=== PATIENT | female | born 2000 | race Caucasian/White ===

== ENCOUNTER 2023-07-19 06:22 | Inpatient (IN) | payer SELFPAY, OTHER ==
[2023-07-19] VITALS (25 sets, daily range): BP systolic 90–125; BP diastolic 46–98; PULSE 80–127; RESP 16–21; TEMP 36.4–37; O2SAT 97–99
[2023-07-19] MEDS: Lactated Ringers 1,000 ML 999 ML IV (06:30)
[2023-07-19 06:51] LABS: Absolute Lymphocyte Count 0.76 X10^3/uL (0.83-4.51); Absolute Neutrophil Count 14.4 X10^3/uL (2.0-7.7); Basophil# 0.02 X10^3/uL; Basophil% 0.1 % (0-1); Hematocrit 34.2 % (37-47); Hemoglobin 11.4 g/dL (12.0-15.0); Lymphocyte # 0.76 X10^3/ul (0.83-4.51); Lymphocyte % 4.8 % (19-41); Mean Corp Hgb Conc 33.3 g/dL (32-36); Mean Corpuscular Hgb 28.4 pg (27.0-32.0); Mean Corpuscular Volume 85.1 fL (81-99); Mean Platelet Vol. 12.4 fl (6.2-12.0); Monocyte# 0.72 X10^3/uL; Monocyte% 4.5 % (0-10); NRBC Flagged by Analyzer 0 % (0-5); Neutrophil # 14.35 X10^3/uL (2.7-7.7); Neutrophil % 89.9 % (47-70); Platelet Count 174 K/mm3 (150-450); RBC Distribution Width CV 12.3 % (11.6-14.6); RBC Distribution Width SD 38.1 fl (35.1-43.9); Red Blood Count 4.02 M/mm3 (4.2-5.4)
--- NOTE | 2023-07-19 07:17 | PCM.HP.OB ---
HPI - General General Date of Admission: 07/19/23 Date of Service: 07/19/23 Chief Complaint: Contractions and bleeding HPI Narrative FRANK VILLALOBOS, is a 22 F who presents in active labor. She is Completely dilated and complete breech. care has been completed with [facility]. GBS unknown. Gross ROM but time unknown. Maternal Data Information Final MARY: 08/[birth year]/23 Gestational age: 35+1 Doctor Who Attended Delivery: Latoya Wilson PFS Allergy/AdvReac Type Severity Reaction Status Date / Time No Known Allergies Allergy Verified 07/19/23 07:00 NST FHR Rate Baby A Baseline: 140 Variability:: Moderate Accelerations:: 15 x 15 Decelerations:: None NST Reactive:: Yes FHR Category:: Category I Uterine Activity:: q 2-4 ROS Constitutional Constitutional: Denies fatigue, fever(s) or malaise Eyes Eyes: Denies change in vision ENT HEENT: Denies dizziness or headache(s) Cardiovascular Cardiovascular: Denies chest pain, dyspnea or lightheadedness Respiratory/Chest Respiratory/Chest: Denies cough or dyspnea Gastrointestinal Gastrointestinal: Denies change in bowel habits Genitourinary Genitourinary: Denies burning urination or genital lesions Integumentary Integumentary: Denies rash Neurologic Neurologic: Denies confusion, dizziness, headache(s), numbness or weakness Vital Signs Vital Signs Vital Signs: 07/19/23 06:02 07/19/23 06:02 07/19/23 06:07 Pulse Rate 127 H 106 H Blood Pressure BP Systolic BP Diastolic Pulse Ox 98 07/19/23 06:07 07/19/23 06:13 07/19/23 06:13 Pulse Rate 100 Blood Pressure 124/80 H BP Systolic 124 BP Diastolic 80 Pulse Ox 98 Physical Exam Const alert General Appearance: cooperative HEENT normocephalic Resp normal respiratory effort GI soft to palpation GI Narrative: gravid, nontender, appropriate for gestational age Manual OB Exam: presentation breech, dilated 10, effaced 100 and station 0 Extremity no calf tenderness General Extremity: edema Skin no wounds Rashes: No rashes noted Psych activity/motor behavior normal Labs Labs Labs: Hct 34.2 % (37-47) L Hgb 11.4 g/dL (12.0-15.0) L Syphilis Total Ab Pending A+, routine labs negative Assessment & Plan (1) Breech presentation: PLAN: STAT primary c/s (2) Active labor:
--- NOTE | 2023-07-19 07:28 | OP.PCM_ITS ---
Assessment & Plan (1) Breech presentation: (2) Active labor: Maternal Data Information Final MARY: 08/22/23 Gestational age: 35+1 Doctor Who Attended Delivery: Latoya Wilson Details Operative Information Date of Procedure: 07/19/23 Pre-Operative Diagnosis: Active labor, breech presentation Post-Operative Diagnosis: same Indications for : Breech Indications Narrative: Active labor, complete dilation on arrival Classification: Stat Procedure Type: [employer] account executive #1: Brenden Acosta Type of Anesthesia: Spinal Anesthesiologist: Melvin Velez Antibiotic Given: Ancef 2 grams IV x1 and Zithromax 500 mg/5 mL X1 Drain: [place] to straight drain Estimated Blood Loss: 300 cc Procedure Start Time: 06:44 Procedure Stop Time: 07:25 Time of Delivery: 06:48 Findings Description of Procedure: Patient presented to L&D with contractions and bleeding. She was found to be completely dilated and breech. She was consented for primary . She was quickly moved to the OR where spinal anesthesia was placed. She was then placed in a dorsal supine position with a leftward tilt. She prepped and draped in the normal sterile fashion. A Pfannenstiel incision was made with the scalpel and carried down to the underlying fascia. The fascia was incised and extended laterally. The muscled were divided in the midline and the peritoneum entered blunted. The bladder blade was placed. A low transverse incision was made with the scalpel. The incision was extended laterally. The butt was elevated and delivered through the incision. The arms were swept through the incision. The uterus had to be T-ed to delivered the head. CAN x1. The cord was clamped and cut and the infant handed to the nurses. The placenta was delivered with expression. The uterus was cleared of clot and debris. The T part was repaired with 1-0 Vicryl in 2 layers. The low transverse incision was repaired with 1-0 Vicryl in 2 layers. The uterus was returned to the abdomen. The gutters were cleared. There peritoneum was closed with Monocryl. The The fascia was closed with 1-0 Vicryl. The skin was closed with 4-0. All sponge lap and need counts were correct. Presentation: Positive for Complete Breech Amniotic Membrane Rupture Type: Spontaneous Time of Membrane Ruptured: unknown Amniotic Fluid Description: Clear Placental Delivery Description: Expressed Placenta Disposition: [facility] Cord Vessel Description: 3 Vessels Cord Entanglement: Around neck x 1, loose Nuchal Cord Compression: Without compression Cord Gases: ABG A Gender: Male (1 minute): 9 (5 minute): 9 Delayed Cord Clamping: No Complications Risks of Surgery Discussed w/Patient: Need for Future C-Sections (t of incision)
[2023-07-19] MEDS: Oxytocin 15 Units/NS 250ml 15 UNITS/250 ML IV.SOLN 83 UNITS IV (07:45)
[2023-07-19] MEDS: Ondansetron 4 MG/2 ML Vial IV (08:24)
[2023-07-19] MEDS: Ketorolac 30 MG/ML Syringe IV ×3 (08:42→20:18)
[2023-07-19] MEDS: proCHLORPERazine 10 MG/2 ML Vial IV (08:59)
[2023-07-19] MEDS: Lactated Ringers 1,000 ML 100 ML IV (09:00)
[2023-07-19] MEDS: Azithromycin 500 MG in Dextrose 5%-Water (250mL Bag) 250 ML 250 MG IV (09:49)
[2023-07-19] MEDS: Acetaminophen 500 MG Tablet 1000 MG PO ×2 (14:18→20:18)
[2023-07-19 17:15] LABS: Syphilis Antibodies Non-reactive
[2023-07-19] MEDS: 0.9% Saline Lock 10 ML Syringe IV (20:18)
[2023-07-19 21:11] LABS: HIV - WCH Non-Reactive (Nonreactive); Hepatitis C Antibody Non-Reactive (Nonreactive)
[2023-07-20] MEDS: 0.9% Saline Lock 10 ML Syringe IV (02:15)
[2023-07-20] MEDS: Ketorolac 30 MG/ML Syringe IV (02:16)
[2023-07-20] MEDS: Acetaminophen 500 MG Tablet 1000 MG PO ×4 (02:16→19:36)
[2023-07-20 04:52] VITALS: BP 101/63; PULSE 90; RESP 16; TEMP 36.8
[2023-07-20 05:53] LABS: Hematocrit 25.4 % (37-47); Hemoglobin 8.3 g/dL (12.0-15.0); Mean Corp Hgb Conc 32.7 g/dL (32-36); Mean Corpuscular Hgb 27.9 pg (27.0-32.0); Mean Corpuscular Volume 85.5 fL (81-99); Mean Platelet Vol. 11.9 fl (6.2-12.0); Platelet Count 162 K/mm3 (150-450); RBC Distribution Width CV 12.7 % (11.6-14.6); RBC Distribution Width SD 39.5 fl (35.1-43.9); Red Blood Count 2.97 M/mm3 (4.2-5.4); White Blood Count 12.6 K/mm3 (4.4-11.0)
[2023-07-20] MEDS: Ibuprofen 600 MG Tablet PO ×3 (07:49→19:36)
[2023-07-20 08:32] VITALS: BP 109/77; RESP 16; TEMP 36.7
--- NOTE | 2023-07-20 08:56 | PN.OBGYN_ITS ---
Subjective Subjective Denies complaints Objective Data Objective Data Vital Signs: Vital Signs Temp Pulse Resp BP Pulse Ox O2 Del Method 98.0 F 90 16 109/77 97 Room Air 07/20/23 08:32 07/20/23 04:52 07/20/23 08:32 07/20/23 08:32 07/19/23 20:30 07/20/23 08:32 Oxygen Delivery Method Room Air Weight: 5 lb 3 oz Body Mass Index (BMI) 0.9 Intake & Output: Intake and Output for Last 24 Hours 07/18/23 07/19/23 07/20/23 23:59 23:59 23:59 Intake Total 2605 / 2605 Output Total 500 / 500 Balance 2105 / 2105 Lab / Micro Data 07/20/23 05:40 Labs: Laboratory Results - last 24 hr 07/19/23 06:20: Syphilis Total Ab Cancelled 07/19/23 08:15: Syphilis Total Ab Non-reactive, Hepatitis C Antibody Non- Reactive, HIV 1&2 Antibody Non-Reactive, Blood Type A POSITIVE, Antibody Screen NEGATIVE 07/20/23 05:40: WBC 12.6 H, RBC 2.97 L, Hgb 8.3 L, Hct 25.4 L, MCV 85.5, MCH 27.9, MCHC 32.7, RDW Std Deviation 39.5, RDW Coeff of Pearl 12.7, Plt Count 162, MPV 11.9 Physical Exam Const alert, oriented x3 and no apparent distress HEENT normocephalic GI soft to palpation, non-tender and non-distended GI Narrative: fundus firm, mid & below umbilicus Incision - bandage c/d/i Extremity normal to inspection and no calf tenderness Assessment & Plan (1) Delivery by section: COMMENT: POD#1 (2) Acute blood loss anemia: PLAN: Plan Heme - start iron for anemia GI/ - no issues ID - AF, no signs infection Routine care
[2023-07-20] MEDS: Senna/Docusate Sodium 1 Tablet PO (10:00)
[2023-07-20 14:48] VITALS: BP 85/56; PULSE 107; RESP 16; TEMP 37.1; O2SAT 98
[2023-07-20 19:59] VITALS: BP 108/65; PULSE 116; RESP 16; TEMP 36.8; O2SAT 99
[2023-07-21 02:15] VITALS: BP 116/55; PULSE 118; RESP 16; TEMP 36.9; O2SAT 100
[2023-07-21] MEDS: Ibuprofen 600 MG Tablet PO ×3 (02:17→13:53)
[2023-07-21] MEDS: Acetaminophen 500 MG Tablet 1000 MG PO ×3 (02:18→13:53)
[2023-07-21 08:07] VITALS: BP 107/63; PULSE 117; RESP 16; TEMP 36.9; O2SAT 99
--- NOTE | 2023-07-21 08:33 | PCM.PN.OB ---
Subjective Subjective Doing well. Pain controlled. Ambulating and voiding without difficulty. Breast feeding and supplementing. Maternal tachycardia but no chest pain or SOB. Objective Data Objective Data Vital Signs: Vital Signs Temp Pulse Resp BP Pulse Ox O2 Del Method 98.4 F 117 H 16 107/63 99 Room Air 07/21/23 08:07 07/21/23 08:07 07/21/23 08:07 07/21/23 08:07 07/21/23 08:07 07/21/23 08:07 Oxygen Delivery Method Room Air Weight: 2.353 kg Body Mass Index (BMI) 0.9 Intake & Output: Intake and Output for Last 24 Hours 07/19/23 07/20/23 07/21/23 23:59 23:59 23:59 Intake Total 2605 / 2605 Output Total 500 / 500 Balance 2105 / 2105 Lab / Micro Data 07/20/23 05:40 Physical Exam Const alert General Appearance: cooperative GI GI Narrative: soft, moderate distention, fundus firm, appropriately tender. Abdominal bandage clean dry and intact Assessment & Plan (1) Delivery by section: COMMENT: POD#1 (2) Breech presentation: (3) Acute blood loss anemia: PLAN: Plan Expect discharge today
--- NOTE | 2023-07-21 08:35 | PCM.DC.SUM ---
Providers Date of Admission: 07/19/23 Primary Care Physician: Nadiya Primary Care Phys Reason For Visit: PRIMARY C SECTION Diagnosis Discharge Diagnosis (1) Delivery by section: Status: Acute (2) Breech presentation: Status: Acute Code(s): O32.1XX0 - Maternal care for breech presentation, not applicable or unspecified (3) Acute blood loss anemia: Status: Acute Code(s): D62 - Acute posthemorrhagic anemia Plan Expect discharge today Medications at Discharge Home Medications vit no.95-ferrous fumarate 28 mg-folic acid 800 mcg tablet () 1 tab PO DAILY nutrition 07/19/23 ibuprofen 600 mg tablet 600 mg PO Q6H #30 tabs 07/21/23 Hospital Course Operations section Procedures None Summary of Care Provided Minutes Spent on Discharge: 21 Hospital Course: Presented with complete dilation and breech presentation. care [facility]. Primary c/s for breech. Uncomplicated delivery. Breast feeding. Post care complicated by maternal tachycardia and anemia. Physical Exam Const alert General Appearance: cooperative GI GI Narrative: soft, moderate distention, fundus firm, appropriately tender. Abdominal bandage clean dry and intact Weight / BMI Weight Weight: 2.353 kg Body Mass Index (BMI) 0.9 ABG / Lab / Microbiology Data 07/20/23 05:40 D/C Instructions Discharge Diet: No restrictions May resume sexual activity in: 4-6 weeks Lifting Restrictions: 20 pounds Additional Activity Instructions: Nothing in the vagina for 4-6 weeks. You may return to work/school in 6 weeks. Call your doctor if your incision/area has: Continuous Slow Oozing, Sudden Increased Bleeding, Increased Pain/ Swelling, Increased Redness and Foul Smelling Discharge Call your doctor if you observe: Fever of 101 or Higher and Using more than 1 pad per hour (for 2 hours) Suture Line Care: Avoid Pulling/Pushing and Avoid Pinching/Bending Cleanse incision/area with: Keep Dressing Clean & Dry Please Follow Up With: Yue Quintana MD When: Call to make an appointment for an incision check in 1-2 [phone]. You will need a post check in 6 weeks. Meaningful Use Info Meaningful Use Meaningful Use Diagnoses (Choose all that apply): None applicable Ischemic Stroke Statin Dosing Therapy Reference: STATIN DOSE THERAPY REFERENCE: * Patients > 75 years receive moderate or high dose statin therapy. * Patients 75 years or YOUNGER should receive HIGH intensity statin dose unless contraindicated. You will be required to document reason for non-treatment if statin daily dose does not meet guidelines. HIGH DOSE STATIN THERAPY DAILY Atorvastatin > than or = to 40 mg Rosuvastatin > than or = to 20 mg Amlodipine + Atorvastatin > than or = to 2.5/40 mg Ezetimibe + Simvastatin 10/80 mg Simvastatin 80mg Discharge Plan Admission Admit Date/Time: 07/19/23 06:22 Primary Reason for Your Visit: labor, breech presentation Attending Provider: Shayy Sal Primary Care Provider: Care Physician,No Primary Discharge Orders/Prescriptions Prescriptions: New ibuprofen 600 mg Tablet 600 mg PO Q6H Qty: 30 0RF Continued PNV cmb#95-ferrous fumarate-FA [] 28 mg iron- 800 mcg tablet 1 tab PO DAILY Referrals / Follow Up: Care Physician,No Primary [Primary Care Provider] - Disposition Disposition (needs filled in before D/C Order can be placed): Home, Self Care
[2023-07-21] MEDS: Senna/Docusate Sodium 1 Tablet PO (09:46)
[2023-07-21 12:20] VITALS: PULSE 123; RESP 14; O2SAT 99
[2023-07-21 13:02] VITALS: BP 116/73; PULSE 116; RESP 16; TEMP 37; O2SAT 99
[2023-07-21 14:34] VITALS: RESP 14
== END 2023-07-21 15:00 | disposition home or self-care (01) | DRG 786 ==
PROVIDERS: Admitting Provider Obstetrics & Gynecology; Referring Provider Obstetrics & Gynecology; Visit Provider Obstetrics & Gynecology
DX: O32.1XX0 Maternal care for breech presentation, not applicable or unspecified (principal); O60.14X0 Preterm labor third trimester with preterm delivery third trimester, not applicable or unspecified; D62 Acute posthemorrhagic anemia; O42.92 Full-term premature rupture of membranes, unspecified as to length of time between rupture and onset of labor; O90.81 Anemia of the puerperium; O69.81X0 Labor and delivery complicated by cord around neck, without compression, not applicable or unspecified; Z37.0 Single live birth
CPT/HCPCS: 59025; 59050; 85025; 85027; 86703; 86780; 86803; 86850; 86900; 86901; 99221; J7120; A4216; G0378; J2405